=== PATIENT | female | born 1945 | race Caucasian/White ===

== ENCOUNTER 2018-01-20 20:03 | Emergency (ER) | payer OTHER ==
--- NOTE | 2018-01-20 23:00 | EDPHYS ---
Physician Documentation [facility] Name: Angie Carney Age: 72 yrs Sex: Female : 1945 Arrival Date: 01/20/2018 Time: 20:10 Bed 19 Private MD: ED Physician Jerzy Ferreira HPI: 01/20 22:55 This 72 yrs old Female presents to ER via EMS with unknown complaint. gs 22:55 The patient presents with pain, that is chronic. The complaints affect the left leg and gs right leg. Onset: The symptoms/episode began/occurred 2 month(s) ago. Modifying factors: the symptoms are aggravated by movement. Associated signs and symptoms: Pertinent negatives fever, swelling. Severity of symptoms: At their worst the symptoms were moderate, in the emergency department the symptoms are unchanged. The patient has experienced similar episodes in the past, chronically. says has calf pain concerned for dvt. Historical: - Allergies: 20:29 Adhesives; jd3 20:29 PENICILLINS; jd3 - Home Meds: 20:30 Flexeril Oral [Active]; other pain medication [Active]; jd3 - PMHx: 20:29 Back pain; Hypertension; jd3 - PSHx: 20:29 back sx; LILLIAM feet sx; Cholecystectomy; Hysterectomy; jd3 - Immunization history:: Adult Immunizations up to date. - Social history:: Smoking status: Patient/guardian denies using tobacco. - Ebola Screening: : Patient negative for fever greater than or equal to 101.5 degrees Fahrenheit, and additional compatible Ebola Virus Disease symptoms. ROS: 22:55 All other systems are negative. gs Exam: 22:55 Head/Face: Normocephalic, atraumatic. Eyes: Pupils equal round and reactive to light, gs extra-ocular motions intact. Lids and lashes normal. Conjunctiva and sclera are non-icteric and not injected. Cornea within normal limits. Periorbital areas with no swelling, redness, or edema. ENT: Nares patent. No nasal discharge, no septal abnormalities noted. Tympanic membranes are normal and external auditory canals are clear. Oropharynx with no redness, swelling, or masses, exudates, or evidence of obstruction, uvula midline. Mucous membranes moist. Neck: Trachea midline, no thyromegaly or masses palpated, and no cervical lymphadenopathy. Supple, full range of motion without nuchal rigidity, or vertebral point tenderness. No Meningismus. Chest/axilla: Normal chest wall appearance and motion. Nontender with no deformity. No lesions are appreciated. Cardiovascular: Regular rate and rhythm with a normal S1 and S2. No gallops, murmurs, or rubs. Normal PMI, no JVD. No pulse deficits. Respiratory: Lungs have equal breath sounds bilaterally, clear to auscultation and percussion. No rales, rhonchi or wheezes noted. No increased work of breathing, no retractions or nasal flaring. Abdomen/GI: Soft, non-tender, with normal bowel sounds. No distension or tympany. No guarding or rebound. No evidence of tenderness throughout. Back: No spinal tenderness. No costovertebral tenderness. Full range of motion. Skin: Warm, dry with normal turgor. Normal color with no rashes, no lesions, and no evidence of cellulitis. Neuro: Awake and alert, GCS 15, oriented to person, place, time, and situation. Cranial nerves II-XII grossly intact. Motor strength 5/5 in all extremities. Sensory grossly intact. Cerebellar exam normal. Normal gait. 22:55 Constitutional: The patient appears alert, awake. 22:55 Musculoskeletal/extremity: Circulation is intact in all extremities. Sensation intact. DVT Exam: tenderness, that is moderate, of the right leg, of the left leg, of the calf. Vital Signs: 20:31 BP 129 / 72; Pulse 85; Resp 18 S; Temp 97.7(O); Pulse Ox 95% on R/A; Weight 92.08 kg jd3 (R); Height 5 ft. 3 in. (160.02 cm) (R); Pain 10/10; 21:24 BP 131 / 90; Pulse 83; Resp 19 S; Pulse Ox 97% on R/A; Pain 10/10; jd3 22:48 BP 144 / 83; Pulse 81; Resp 19 S; Pulse Ox 97% on R/A; Pain 10/10; jd3 20:31 Body Mass Index 35.96 (92.08 kg, 160.02 cm) jd3 MDM: 21:28 Patient medically screened. 22:55 Differential diagnosis: dvt. Data reviewed: vital signs, nurses notes. Response to gs treatment: the patient's symptoms have mildly improved after treatment, and as a result, I will discharge patient. 01/20 21:30 Order name: US Extremity Venous W Compression Lilliam gs Administered Medications: No medications were administered Disposition: 01/20/18 22:59 Discharged to Home. Impression: Chronic pain syndrome. - Condition is Stable. - Discharge Instructions: Chronic Pain. - Medication Reconciliation Form, Thank You Letter, Antibiotic Education, Prescription Opioid Use form. - Follow up: Private Physician; When: 2 - 3 days; Reason: Re-evaluation by your physician. Signatures: Dispatcher [employer] Jerzy Flowers MD MD gs Davies, Jonathon RN RN jd3 Corrections: (The following items were deleted from the chart) 23:12 22:59 01/20/2018 22:59 Discharged to Home. Impression: Chronic pain syndrome. Condition jd3 is Stable. Forms are Medication Reconciliation Form, Thank You Letter, Antibiotic Education, Prescription Opioid Use. Follow up: Private Physician; When: 2 - 3 days; Reason: Re-evaluation by your physician. mai
--- NOTE | 2018-01-20 23:00 | ER ---
Nurse's Notes [facility] Name: Angie Carney Age: 72 yrs Sex: Female : 1945 Arrival Date: 01/20/2018 Time: 20:10 Bed 19 Private MD: Diagnosis: Chronic pain syndrome Presentation: 01/20 20:10 Presenting complaint: EMS states: "we were called out for the pt who has chronic back jd3 pain. She is reporting that it is now hurting down both legs as well." the pt states "my doctor also told me I might have a DVT in the right lower leg." EMS also reported that the pt has taken one of her last doses of her pain medication prescribed by her pain management doctor. Transition of care: patient was not received from another setting of care. Onset of symptoms was January 20, 2018. Risk Assessment: Do you want to hurt yourself or someone else? Patient reports no desire to harm self or others. Initial Sepsis Screen: Does the patient meet any 2 criteria? No. Patient's initial sepsis screen is negative. Does the patient have a suspected source of infection? No. Patient's initial sepsis screen is negative. Care prior to arrival: IV initiated. 20 GA, in the right antecubital area, pt took Flexeril at 1600 and one other prescribed pain medication at 1000. 20:10 Method Of Arrival: [facility] jd3 20:10 Acuity: YON 3 jd3 Historical: - Allergies: 20:29 Adhesives; jd3 20:29 PENICILLINS; jd3 - Home Meds: 20:30 Flexeril Oral [Active]; other pain medication [Active]; jd3 - PMHx: 20:29 Back pain; Hypertension; jd3 - PSHx: 20:29 back sx; LILLIAM feet sx; Cholecystectomy; Hysterectomy; jd3 - Immunization history:: Adult Immunizations up to date. - Social history:: Smoking status: Patient/guardian denies using tobacco. - Ebola Screening: : Patient negative for fever greater than or equal to 101.5 degrees Fahrenheit, and additional compatible Ebola Virus Disease symptoms. Screenin:35 Abuse screen: Denies threats or abuse. Nutritional screening: No deficits noted. jd3 Tuberculosis screening: No symptoms or risk factors identified. Fall Risk IV access (20 points). Gait- Weak (10 pts.). Mental Status- Oriented to own ability (0 pts). Total De Anda Fall Scale indicates Low Risk Score (25-44 pts). Fall prevention measures have been instituted. Side Rails Up X 2 Placed close to Nursing Station Frequent Obs/Assesments occuring. Assessment: 20:10 General: Appears uncomfortable, Behavior is cooperative, appropriate for age, Reports jd3 pain in back and in lilliam legs. Pain: Complains of pain in back, right leg and left leg Pain currently is 10 out of 10 on a pain scale. Quality of pain is described as sharp, shooting, Is continuous. Neuro: Level of Consciousness is awake, alert, obeys commands, Oriented to person, place, time, situation, Appropriate for age. Cardiovascular: Heart tones S1 S2 present Capillary refill < 3 seconds Patient's skin is warm and dry. Respiratory: Airway is patent Respiratory effort is even, unlabored, Respiratory pattern is regular, symmetrical, Breath sounds are clear bilaterally. GI: Abdomen is round obese, Bowel sounds present X 4 quads. Abd is soft and non tender X 4 quads. Reports diarrhea, nausea. : No signs and/or symptoms were reported regarding the genitourinary system. EENT: No signs and/or symptoms were reported regarding the EENT system. Derm: Skin is intact, Skin is dry, Skin is normal, Skin temperature is warm. Musculoskeletal: Circulation, motion, and sensation intact. Range of motion: intact in all extremities. 21:25 Reassessment: Patient appears in no apparent distress at this time. Patient and/or jd3 family updated on plan of care and expected duration. Pain level reassessed. Patient is alert, oriented x 3, equal unlabored respirations, skin warm/dry/pink. pt waiting to be seen by provider. 22:30 Reassessment: Patient appears in no apparent distress at this time. Patient and/or jd3 family updated on plan of care and expected duration. Pain level reassessed. Patient is alert, oriented x 3, equal unlabored respirations, skin warm/dry/pink. provider notified of pain and nausea, no new orders at this time. 23:10 Reassessment: Patient appears in no apparent distress at this time. Patient and/or jd3 family updated on plan of care and expected duration. Pain level reassessed. Patient is alert, oriented x 3, equal unlabored respirations, skin warm/dry/pink. pt reported understanding of discharge instructions, even and steady gait upon discharge. Vital Signs: 20:31 BP 129 / 72; Pulse 85; Resp 18 S; Temp 97.7(O); Pulse Ox 95% on R/A; Weight 92.08 kg jd3 (R); Height 5 ft. 3 in. (160.02 cm) (R); Pain 10/10; 21:24 BP 131 / 90; Pulse 83; Resp 19 S; Pulse Ox 97% on R/A; Pain 10/10; jd3 22:48 BP 144 / 83; Pulse 81; Resp 19 S; Pulse Ox 97% on R/A; Pain 10/10; jd3 20:31 Body Mass Index 35.96 (92.08 kg, 160.02 cm) jd3 ED Course: 20:10 Patient arrived in ED. jd3 20:11 Jerzy Ferreira MD is Attending Physician. 20:21 Bunny Ivan, RN is Primary Nurse. jd3 20:28 Triage completed. jd3 20:32 Arm band placed on. jd3 21:25 Patient has correct armband on for positive identification. Bed in low position. Call jd3 light in reach. Side rails up X 1. 22:02 Ultrasound completed. Patient tolerated well. aa4 22:03 US Extremity Venous W Compression Lilliam In Process Unspecified. EDMS 23:10 No provider procedures requiring assistance completed. IV discontinued, intact, jd3 bleeding controlled, No redness/swelling at site. Pressure dressing applied. Administered Medications: No medications were administered Outcome: 22:59 Discharge ordered by . 23:10 Discharged to home ambulatory. jd3 23:10 Condition: stable 23:10 Discharge instructions given to patient, Instructed on discharge instructions, follow up and referral plans. Demonstrated understanding of instructions, follow-up care. 23:12 Patient left the ED. jd3 Signatures: Dispatcher [employer] EDMS Marilyn Rice aa4 Jerzy Ferreira MD MD Bunny Ivan, RN RN jd3 Corrections: (The following items were deleted from the chart) 20:36 20:10 Care prior to arrival: pt took Flexeril at 1600 and one other prescribed pain jd3 medication at 1000 jd3
[2018-01-20 23:15] VITALS: TEMP 97.7
[2018-01-20 23:16] VITALS: O2SAT 97
[2018-01-20 23:18] VITALS: BP 144/83
--- NOTE | 2018-01-21 07:44 | RAD REPORT ---
EXAM DESCRIPTION: VAS - Extrem Venous W Compress Christiano - 01/20/2018 10:02 pm CLINICAL HISTORY: Leg pain and swelling Preliminary findings provided at the time of the study. COMPARISON: None. TECHNIQUE: Real-time sonographic evaluation of the bilateral lower extremity deep venous systems was performed. FINDINGS: Normal compressibility, flow augmentation, phasic flow and spontaneous flow are identified in the left and right lower extremity deep venous systems. No intraluminal filling defects seen. IMPRESSION: No DVT in either lower extremity.
== END 2018-01-20 23:12 | disposition home or self-care (01) ==
LOC: ER 20:03
DX: G89.4 Chronic pain syndrome (principal); Z88.0 Allergy status to penicillin
CPT/HCPCS: 93970; 99283

== ENCOUNTER 2018-08-16 19:44 | Emergency (ER) | payer OTHER ==
--- NOTE | 2018-08-16 20:44 | RAD REPORT ---
EXAM DESCRIPTION: CT - Stone Protocol - 08/16/2018 8:32 pm CLINICAL HISTORY: Hematuria, back pain, bilateral flank pain COMPARISON: None. TECHNIQUE: Axial 5 mm thick images were obtained without oral or IV contrast. The [id number] span s the entirety of the system including uppermost abdomen and lung bases. All CT scans are performed using dose optimization technique as appropriate and may include automated exposure control or mA/KV adjustment according to patient size. FINDINGS: No hydronephrosis is present and no obstructing ureteral calculi. No suspicious renal mass es. Isodense masses and pyelonephritis are not excluded on a stone protocol CT scan. Urinary bladder is tightly contracted limiting assessment. No bladder calculus seen. Small filling defects or masses in the ureters are not excluded on CT imaging. No significant adrenal finding. Pelvic floor laxity is present. Uterus is absent. Small left ovary is present. A 3 centimeter right o varian cyst is present. This may be a you remnant ovarian or paraovarian cyst. No calcification or fa t component. Cysts are not typically seen in a patient this age. Continued follow-up is needed to ass ure no growth. Imaged portions of the liver, spleen and pancreas show no suspicious findings on non-contrast imaging . Cholecystectomy clips are present. No biliary tree dilatation. No suspicious bowel findings. No acute GI process seen. No hernia, mass or bulky lymphadenopathy noted. No free air, free fluid or inflammatory stranding. Advanced disc and bony degenerative changes are present along with postsurgical change. An acute bone process is not suspected. Minimal bilateral pleural effusions. IMPRESSION: No hydronephrosis, obstructing calculus or acute finding. Isodense masses and pyelone phritis are not excluded. Urinary bladder is tightly contracted precluding assessment for any bladder mass or source for hematu kandy. No acute GI process identifiable. Approximately 3 centimeter right ovarian or paraovarian cyst. This may be a benign remnant cysts but no comparison available to establish stability. Cysts are not common in a patient this age and contin ued close follow-up is needed. Minimal bilateral pleural effusions. Isodense masses and pyelonephritis are not excluded on stone protocol technique.
[2018-08-16 20:56] LABS: Urine RBC LOADED /HPF (NONE SEEN)
[2018-08-16 20:59] LABS: Urine Bacteria >50 /HPF (<20); Urine Culture Reflex Order NOT NEEDED
[2018-08-16 21:13] LABS: Absolute Lymphocytes (CBC) 1.5 K/uL (0.7-4.9); Absolute Monocytes 0.8 K/uL (0.1-1.3); Absolute Neutrophil 9.7 K/uL (1.8-8.0); Basophils % 0.6 % (0-1.3); Eosinophils % 1.4 % (0-4.4); Lymphocytes % 12.4 % (15.3-44.8); MCH 30.2 pg (27.0-35.0); MCV 90.9 fL (80-100); MPV 8.9 fL (7.6-11.3); Monocytes % 6.4 % (3.3-12.3); RBC Red Blood Cell Count 3.96 M/uL (3.86-4.86)
[2018-08-16] MEDS ORDERED: NITROFURAN MACRO 100 MG CAP PO ONE (21:26)
[2018-08-16 21:29] LABS: Urine Blood 3+ (NEG); Urine Glucose NEGATIVE (NEG); Urine Protein 3+ (NEG); Urine Specific Gravity >1.030 (1.005-1.030); Urine pH 5.5 (5.0-7.0)
[2018-08-16 21:34] LABS: Potassium 3.9 mmol/L (3.5-5.1)
--- NOTE | 2018-08-16 22:02 | ER ---
Nurse's Notes [facility] Name: Angie Carney Age: 72 yrs Sex: Female : 1945 Arrival Date: 08/16/2018 Time: 19:48 Bed 26 Private MD: Diagnosis: Hematuria, unspecified;Urinary tract infection, site not specified Presentation: 08/16 20:25 Presenting complaint: Patient states: Blood in the urine, lower back pain and dysuria aj1 since this morning. Transition of care: patient was not received from another setting of care. Onset of symptoms was August 16, 2018. Risk Assessment: Do you want to hurt yourself or someone else? Patient reports no desire to harm self or others. Initial Sepsis Screen: Does the patient meet any 2 criteria? No. Patient's initial sepsis screen is negative. Does the patient have a suspected source of infection? Yes: Dysuria/Frequency/Urgency/UTI. Care prior to arrival: None. 20:25 Method Of Arrival: Ambulatory aj1 20:25 Acuity: YON 3 aj1 Triage Assessment: 20:29 General: Appears in no apparent distress. uncomfortable, Behavior is calm, cooperative, aj1 appropriate for age. Pain: Complains of pain in low back area. Historical: - Allergies: 20:29 Adhesives; aj1 20:29 PENICILLINS; aj1 - Home Meds: 20:29 Nexium 40 mg Oral cpDR 1 cap once daily [Active]; loratadine 10 mg oral tab 1 tab once aj1 daily [Active]; trazodone 100 mg Oral tab 1 tab at bedtime [Active]; fluoxetine 20 mg Oral cap 1 cap once daily [Active]; levothyroxine 75 mcg tab 1 tab once daily [Active]; pravastatin 40 mg oral tab 1 tab once daily [Active]; tramadol 50 mg Oral tab 1 tab twice daily [Active]; tizanidine 4 mg oral tab 1 tab twice daily [Active]; Nucynta 100 mg oral tab 1 tab twice daily [Active]; - PMHx: 20:29 Back pain; Hypertension; GERD; Depression; Hypothyroidism; Hyperlipidemia; aj1 - Immunization history:: Adult Immunizations unknown. - Social history:: Smoking status: Patient/guardian denies using tobacco, Patient/guardian denies using alcohol, street drugs. - Family history:: not pertinent. - Ebola Screening: : Patient negative for fever greater than or equal to 101.5 degrees Fahrenheit, and additional compatible Ebola Virus Disease symptoms Patient denies exposure to infectious person Patient denies travel to an Ebola-affected area in the 21 days before illness onset. - Hospitalizations: : No recent hospitalization is reported. Screenin:30 Abuse screen: Denies threats or abuse. Denies injuries from another. Nutritional aj1 screening: No deficits noted. Tuberculosis screening: No symptoms or risk factors identified. 22:38 Fall Risk No fall in past 12 months (0 pts). No secondary diagnosis (0 pts). No IV (0 aj1 pts). Ambulatory Aid- Crutches/Cane/Walker (15 pts). Gait- Weak (10 pts.). Mental Status- Oriented to own ability (0 pts). Total De Anda Fall Scale indicates Low Risk Score (25-44 pts). Family Present and informed to notify staff if they need to leave bedside. Assessment: 20:30 General: Appears in no apparent distress. uncomfortable, Behavior is calm, cooperative, aj1 appropriate for age. Pain: Complains of pain in low back area. Neuro: Level of Consciousness is awake, alert, obeys commands. Cardiovascular: Patient's skin is warm and dry. Respiratory: Airway is patent Respiratory effort is even, unlabored, Respiratory pattern is regular, symmetrical. GI: No deficits noted. No signs and/or symptoms were reported involving the gastrointestinal system. : Reports burning with urination. EENT: No signs and/or symptoms were reported regarding the EENT system. Derm: No signs and/or symptoms reported regarding the dermatologic system. Skin is pink, warm \T\ dry. normal. Musculoskeletal: No signs and/or symptoms reported regarding the musculoskeletal system. Circulation, motion, and sensation intact. 21:06 Reassessment: Patient appears in no apparent distress at this time. No changes from aj1 previously documented assessment. Patient and/or family updated on plan of care and expected duration. Pain level reassessed. Patient is alert, oriented x 3, equal unlabored respirations, skin warm/dry/pink. 22:00 Reassessment: Patient appears in no apparent distress at this time. No changes from aj1 previously documented assessment. Patient and/or family updated on plan of care and expected duration. Pain level reassessed. Patient is alert, oriented x 3, equal unlabored respirations, skin warm/dry/pink. 22:05 Reassessment: Discharge pending Dr. Zamorano discussing results with patient. aj1 22:30 Reassessment: Dr. Zamorano at bedside to discuss results with patient. aj1 Vital Signs: 20:50 BP 140 / 68; Pulse 65; Resp 19; Temp 97.9(O); Pulse Ox 96% ; Weight 93.89 kg; Height 5 rr5 ft. 3 in. (160.02 cm); Pain 6/10; 21:05 BP 128 / 59; Pulse 66; Resp 20; Pulse Ox 95% on R/A; aj1 22:00 BP 132 / 65; Pulse 67; Resp 18; Pulse Ox 96% on R/A; aj1 20:50 Body Mass Index 36.67 (93.89 kg, 160.02 cm) rr5 ED Course: 19:48 Patient arrived in ED. ds1 19:58 Chet Zamorano MD is Attending Physician. rn 20:[address] via wheelchair. vm2 20:26 Triage completed. aj1 20:29 Arm band placed on Patient placed in an exam room. aj1 20:30 Patient has correct armband on for positive identification. Bed in low position. Call aj1 light in reach. Side rails up X 1. 20:30 No provider procedures requiring assistance completed. aj1 20:31 CT completed. Patient tolerated procedure well. Patient moved back from OR. ks 20:32 Lorraine Shepard, RN is Primary Nurse. aj1 20:32 CT Stone Protocol In Process Unspecified. EDMS 21:10 Inserted saline lock: 20 gauge in right forearm, using aseptic technique. Blood rr5 collected. 22:36 IV discontinued, intact, bleeding controlled, No redness/swelling at site. Pressure aj1 dressing applied. Administered Medications: 21:23 Drug: Macrobid 100 mg Route: PO; aj1 22:39 Follow up: Response: No adverse reaction aj1 Outcome: 22:01 Discharge ordered by . rn 22:38 Discharged to home via wheelchair. aj1 22:38 Condition: good 22:38 Discharge instructions given to patient, Instructed on discharge instructions, follow up and referral plans. medication usage, Demonstrated understanding of instructions, follow-up care, medications, Prescriptions given X 2. 22:39 Patient left the ED. aj1 Addendum: 08/19/2018 08:00 Addendum: Culture Results: Positive urine culture. No further action required. Bacteria h b sensitive to prescribed antibiotic. Signatures: Dispatcher [employer] EDLorraine Thibodeaux, RN RN aj1 Davina Groves ds1 Chet Zamorano MD MD rn Baxter, Heather, RN RN hb Jordan, Nathan nj McGuire, Victoria 2 Wolfgang Lala RN RN rr5
--- NOTE | 2018-08-16 22:03 | EDPHYS ---
Physician Documentation [facility] Name: Angie Carney Age: 72 yrs Sex: Female : 1945 Arrival Date: 08/16/2018 Time: 19:48 Bed 26 Private MD: ED Physician Chet Zamorano HPI: 08/16 21:02 This 72 yrs old Female presents to ER via Ambulatory with complaints of Blood rn in Urine. 21:02 The patient presents with urinary symptoms, hematuria. Onset: The symptoms/episode rn began/occurred this morning. Modifying factors: The symptoms are alleviated by nothing, the symptoms are aggravated by urinating. Associated signs and symptoms: Pertinent positives: dysuria, urinary frequency, Pertinent negatives: fever, vaginal bleeding. Severity of symptoms: At their worst the symptoms were mild, in the emergency department the symptoms are unchanged. The patient has not experienced similar symptoms in the past. The patient has not recently seen a physician. Historical: - Allergies: 20:29 Adhesives; aj1 20:29 PENICILLINS; aj1 - Home Meds: 20:29 Nexium 40 mg Oral cpDR 1 cap once daily [Active]; loratadine 10 mg oral tab 1 tab once aj1 daily [Active]; trazodone 100 mg Oral tab 1 tab at bedtime [Active]; fluoxetine 20 mg Oral cap 1 cap once daily [Active]; levothyroxine 75 mcg tab 1 tab once daily [Active]; pravastatin 40 mg oral tab 1 tab once daily [Active]; tramadol 50 mg Oral tab 1 tab twice daily [Active]; tizanidine 4 mg oral tab 1 tab twice daily [Active]; Nucynta 100 mg oral tab 1 tab twice daily [Active]; - PMHx: 20:29 Back pain; Hypertension; GERD; Depression; Hypothyroidism; Hyperlipidemia; aj1 - Immunization history:: Adult Immunizations unknown. - Social history:: Smoking status: Patient/guardian denies using tobacco, Patient/guardian denies using alcohol, street drugs. - Family history:: not pertinent. - Ebola Screening: : Patient negative for fever greater than or equal to 101.5 degrees Fahrenheit, and additional compatible Ebola Virus Disease symptoms Patient denies exposure to infectious person Patient denies travel to an Ebola-affected area in the 21 days before illness onset. - Hospitalizations: : No recent hospitalization is reported. ROS: 21:02 Constitutional: Negative for fever, chills, and weight loss, Eyes: Negative for injury, rn pain, redness, and discharge, Neck: Negative for injury, pain, and swelling, Cardiovascular: Negative for chest pain, palpitations, and edema, Respiratory: Negative for shortness of breath, cough, wheezing, and pleuritic chest pain, Abdomen/GI: Negative for abdominal pain, nausea, vomiting, diarrhea, and constipation, : + hematuria MS/Extremity: Negative for injury and deformity, Skin: Negative for injury, rash, and discoloration, Neuro: Negative for headache, weakness, numbness, tingling, and seizure. Exam: 21:02 Constitutional: This is a well developed, well nourished patient who is awake, alert, rn and in no acute distress. Head/Face: Normocephalic, atraumatic. ENT: MMM Abdomen/GI: soft, non-tender Back: No spinal tenderness. No costovertebral tenderness. Full range of motion. Skin: Warm, dry with normal turgor. MS/ Extremity: Pulses equal, no cyanosis. Neurovascular intact. Full, normal range of motion. Equal circumference. Neuro: Awake and alert, GCS 15, oriented to person, place, time, and situation. Cranial nerves II-XII grossly intact. Motor strength 5/5 in all extremities. Sensory grossly intact. Cerebellar exam normal. Normal gait. Vital Signs: 20:50 BP 140 / 68; Pulse 65; Resp 19; Temp 97.9(O); Pulse Ox 96% ; Weight 93.89 kg; Height 5 rr5 ft. 3 in. (160.02 cm); Pain 6/10; 21:05 BP 128 / 59; Pulse 66; Resp 20; Pulse Ox 95% on R/A; aj1 22:00 BP 132 / 65; Pulse 67; Resp 18; Pulse Ox 96% on R/A; aj1 20:50 Body Mass Index 36.67 (93.89 kg, 160.02 cm) rr5 MDM: 19:58 Patient medically screened. rn 22:00 Differential diagnosis: urinary tract infection. Data reviewed: vital signs, nurses rn notes, lab test result(s), radiologic studies, CT scan, and as a result, I will discharge patient. Counseling: I had a detailed discussion with the patient and/or guardian regarding: the historical points, exam findings, and any diagnostic results supporting the discharge/admit diagnosis, lab results, radiology results, the need for outpatient follow up, to return to the emergency department if symptoms worsen or persist or if there are any questions or concerns that arise at home. Special discussion: I discussed with the patient/guardian in detail that at this point there is no indication for admission to the hospital. It is understood, however, that if the symptoms persist or worsen the patient needs to return immediately for re-evaluation. Based on the history and exam findings, there is no indication for further emergent testing or inpatient evaluation. I discussed with the patient/guardian the need to see the OB Gyne specialist for further evaluation of the symptoms. I discussed with the patient/guardian the need to see the primary care provider for further evaluation of the symptoms. 08/16 20:03 Order name: CBC with Diff; Complete Time: 21:53 08/16 20:03 Order name: Basic Metabolic Panel; Complete Time: 21:53 08/16 20:03 Order name: Urine Culture 08/16 20:03 Order name: Urine Microscopic Only; Complete Time: 21:04 08/16 20:03 Order name: CT Stone Protocol; Complete Time: 20:51 08/16 20:33 Order name: Urine Dipstick--Ancillary (enter results); Complete Time: 21:30 nd 08/16 20:03 Order name: IV Start; Complete Time: 21:07 rn 08/16 20:03 Order name: Urine Dipstick-Ancillary (obtain specimen); Complete Time: 20:32 rn Administered Medications: 21:23 Drug: Macrobid 100 mg Route: PO; aj1 22:39 Follow up: Response: No adverse reaction aj1 Disposition: 08/16/18 22:01 Discharged to Home. Impression: Hematuria, unspecified, Urinary tract infection, site not specified. - Condition is Stable. - Discharge Instructions: Hematuria, Adult, Urinary Tract Infection, Adult. - Prescriptions for Pyridium 200 mg Oral Tablet - take 1 tablet by ORAL route every 8 hours for 3 days; 9 tablet. Macrobid 100 mg Oral Capsule - take 1 capsule by ORAL route every 12 hours for 10 days; 20 capsule. - Medication Reconciliation Form, Thank You Letter, Antibiotic Education, Prescription Opioid Use form. - Follow up: Private Physician; When: As needed; Reason: Recheck today's complaints, Re-evaluation by your physician. - Problem is new. - Symptoms have improved. Signatures: Dispatcher [employer] Lorraine De La Rosa RN RN aj1 Chet Zamorano MD MD rn Roque, Raymond, RN RN rr5 Corrections: (The following items were deleted from the chart) 22:39 22:01 08/16/2018 22:01 Discharged to Home. Impression: Hematuria, unspecified; Urinary aj1 tract infection, site not specified. Condition is Stable. Forms are Medication Reconciliation Form, Thank You Letter, Antibiotic Education, Prescription Opioid Use. Follow up: Private Physician; When: As needed; Reason: Recheck today's complaints, Re-evaluation by your physician. Problem is new. Symptoms have improved. rn
[2018-08-16 23:29] VITALS: TEMP 97.9
[2018-08-16 23:32] VITALS: BP 132/65; O2SAT 96
== END 2018-08-16 22:39 | disposition home or self-care (01) ==
LOC: ER 19:44
DX: N39.0 Urinary tract infection, site not specified (principal); I10 Essential (primary) hypertension; F32.9 Major depressive disorder, single episode, unspecified; E03.9 Hypothyroidism, unspecified; E78.5 Hyperlipidemia, unspecified; Z88.0 Allergy status to penicillin; Z91.048 Other nonmedicinal substance allergy status
CPT/HCPCS: 36415; 74176; 76377; 80048; 81003; 81015; 85025; 87077; 87086; 87088; 87186; 99284